=== PATIENT | male | born 1940 | race Caucasian/White ===

== ENCOUNTER 2020-01-18 20:00 | Outpatient (CLI) | payer MEDICARE, OTHER, SELFPAY | END 2020-01-18 20:01 | disposition home or self-care (01) | LOC: SLEEP 01-19 09:09 | PROVIDERS: Family Provider Family Medicine; Visit Provider Family Medicine | DX: G47.33 Obstructive sleep apnea (adult) (pediatric) (principal) | CPT/HCPCS: 95811 ==

== ENCOUNTER 2020-04-18 17:12 | Observation (INO) | payer MEDICARE, SELFPAY ==
[2020-04-18] VITALS (8 sets, daily range): BP systolic 147–176; BP diastolic 79–103; PULSE 66–88; RESP 16–18; TEMP 36.3–36.6; O2SAT 96–98; BMI 32.2
--- NOTE | 2020-04-18 17:25 | CTR_ITS ---
PROCEDURE INFORMATION: Exam: CT Head Without Contrast Exam date and time: 04/18/2020 5:37 PM Age: 79 years old Clinical indication: Altered mental status/memory loss and speech disturbance; Additional info: AMS TECHNIQUE: Imaging protocol: Computed tomography of the head without contrast. Radiation optimization: All CT scans at this facility use at least one of these dose optimization techniques: automated exposure control; mA and/or kV adjustment per patient size (includes targeted exams where dose is matched to clinical indication); or iterative reconstruction. COMPARISON: CT head wo con* [id number] 01/23/2016 9:29 AM RADIATION DOSE METRICS: Total DLP (mGy-cm): 906.09 FINDINGS: Brain: There are mild periventricular and subcortical lucencies consistent with chronic microvascular ischemic changes. Mucosal thickening of bilateral maxillary sinuses and ethmoid sinuses. Cerebral ventricles: No ventriculomegaly. Bones/joints: Unremarkable. No acute fracture. Paranasal sinuses: See Brain finding. Mastoid air cells: Visualized mastoid air cells are well aerated. Vasculature: Vascular calcifications. Soft tissues: Unremarkable. CT/CT head wo con* [id number] IMPRESSION: No acute intracranial abnormality. Chronic microvascular ischemic changes. Radiation Dose CTDIVOL = (mGy): DLP = 906.09 (mGy-cm)
--- NOTE | 2020-04-18 17:26 | XR_ITS ---
WS: [id number] Portable AP upright chest, 04/18/2020 Clinical Data: ams Comparison: Portable chest, 01/23/2016. Findings: No nodules, masses or effusions are seen. The heart is normal. The pulmonary vascularity is not increased. No pneumonia or pneumothorax is seen. The aortic arch and descending aorta show sligh t tortuosity. There is a right cardiophrenic fat pad or cyst. There is also a left cardial phrenic fa t pad or cyst. XR/XR chest 1V portable [id number] Impression: Atherosclerosis.
--- NOTE | 2020-04-18 17:27 | ECG_ITS ---
[facility] Test Date: 2020-04-18 Pat Name: Kevin Darling Department: Room: Gender: Male Delivery Architect: lynn : 1940 Requested By: Alyssa Ferreira Order Number: [id number] Iliana MD: Autumn Sharma M.D. Measurements Intervals [place] Rate: 80 P: 71 ND: 179 QRS: 48 QRSD: 116 T: 1 QT: 365 QTc: 422 Interpretive Statements SINUS RHYTHM PROBABLE INFERIOR MYOCARDIAL INFARCTION [35 ms Q WAVE IN II/aVF], PROBABLY OLD No previous ECG available for comparison Electronically Signed On 04-18-2020 20:25:03 CDT by Autumn Sharma M.D. [id number] f
--- NOTE | 2020-04-18 17:29 | PC.NURSE ---
Blood glucose accucheck is 124, doctor and nurses notified
[2020-04-18 17:34] LABS: Glucose Point of Care 124 mg/dL (70-110)
[2020-04-18 17:37] LABS: Basophils # 0.1 10^3/uL (0.0-0.1); Basophils % 0.6 %; Eosinophils # 0.2 10^3/uL (0.0-0.8); Eosinophils % 2.2 %; Hematocrit 38.6 % (42.0-52.0); Hemoglobin 12.6 g/dL (11.7-16.6); Lymphocytes # 1.7 10^3/uL (0.8-4.8); Lymphocytes % 21.2 %; Mean Corpuscular HGB Conc 32.6 g/dL (30.0-36.0); Mean Corpuscular Hemoglobin 30.1 pg (28.0-34.0); Mean Corpuscular Volume 92.1 fL (80-94); Mean Platelet Volume 10.6 fL (7.4-10.4); Monocytes # 0.6 10^3/uL (0.2-0.9); Monocytes % 7.4 %; Neutrophils # 5.47 10^3/uL (1.8-7.7); Neutrophils % 68.4 %; Nucleated Red Blood Cells % 0 %; Platelet Count 280 10^3/cmm (130-400); Red Blood Count 4.19 10^6/uL (4.1-5.3); Red Cell Distribution Width 12.4 % (12.1-15.1)
[2020-04-18] MEDS: sodium chloride 0.9% 1,000 ML 100 ML IV ×2 (17:44→22:17)
--- NOTE | 2020-04-18 17:46 | ED_ITS ---
HPI - Weakness General: Chief complaint: Weakness Stated complaint: possible stroke Time Seen by Provider: 04/18/20 17:22 Source: patient and family Mode of arrival: ambulatory Limitations: altered mental status History of Present Illness: HPI Narrative: Kevin is a nice 79-year-old male who was brought in by his family with report of difficulty walking and difficulty speaking. Yesterday the patient stated to family that he had a difficult time walking. He seemed to be ataxic and unsteady. His symptoms were present throughout the day yesterday. Today though symptoms have continued but family has noticed slurred speech. Patient has not noticed that he is weak on one side of his body more than another. He states he somewhat feels weak all over. He denies headache, visual changes, neck pain, chest pain, shortness of breath, abdominal pain, back pain, or extremity pain. He has had no fevers or chills been exposed to anybody sick according to the daughter. Because of the persistence and progression of his symptoms his family decided to bring him here to the hospital. The patient is slow to answer questions but does so appropriately at this point. Associated symptoms: Reports confusion; Denies chest pain, chills, melena, diaphoresis, dysuria, easy bruising, fever(s), headache(s), nausea, syncope or vomiting Review of Systems Const: Denies: fever(s), chills, body aches, fatigue, malaise or diaphoresis Eyes: Denies: change in vision, blurry vision, photophobia, eye discomfort, eye discharge, eye redness or yellow eyes ENMT: Denies: throat pain, odynophagia, hoarseness, swelling of lips/tongue, ear or mastoid pain, ear discharge, change in hearing or nasal discharge Card: Denies: chest pain, palpitations, irregular heart rhythm, edema, lightheadedness, syncope, pre-syncope, dyspnea on exertion or orthopnea Resp: Denies: dyspnea, productive cough, non-productive cough, wheezing, hemoptysis or chest congestion GI: Denies: abdominal pain, nausea, vomiting, hematemesis, coffee ground emesis, heartburn, diarrhea, constipation, GI cramping, hematochezia or melena : Denies: flank pain, dysuria, urinary frequency, urinary urgency or hematuria Musc: Denies: neck pain, back pain, extremity pain, extremity swelling, joint pain, joint swelling, joint redness, joint warmth or joint stiffness Skin/Breast: Denies: rash, pruritus, erythema, skin pain or skin tenderness Neuro: Reports: lack of coordination, confusion and Slurred speech present; Denies: headache(s), numbness in extremities, weakness in extremities, sensory changes, difficulty walking, dizziness, vertigo or seizure-like activity Dwight/Lymph: Denies: easy bruising, easy bleeding, petechiae, purpura or enlarged lymph nodes All/Imm: Denies: urticaria, throat swelling, tongue swelling, facial swelling or acute wheezing PFSH ED PFSH: Medical History (Updated 04/18/20 @ 19:03 by Alyssa Smart) Asthma CAD (coronary atherosclerotic disease) Hyperlipidemia Hypertension Myocardial infarction Obstructive sleep apnea Physical Exam Const: COMMON NORMALS: no acute distress, patient oriented x3, no limitations and alert GENERAL APPEARANCE: cooperative HENMT: COMMON NORMALS: normocephalic, atraumatic, external ears normal, EAC's normal and Normal external nose present HEAD & SCALP: normal to inspection, normocephalic and atraumatic FACE & SINUS: normal facial exam and face symmetric NOSE: Normal external nose present and Normal nares present EXTERNAL EAR: Yes external ears normal EXTERNAL AUDITORY CANAL: EAC's normal MOUTH: Normal oral and palatal mucosa present, lip normal and tongue normal Eye: COMMON NORMALS: Equal, round and reactive pupils present and conjunctivae normal GENERAL EYE: appearance normal, both eyes and all related structures ALIGNMENT: Yes alignment normal PERIORBITAL: periorbital findings normal EYELID: eyelids normal CONJUNCTIVA: Yes conjunctivae normal SCLERA: sclerae normal PUPIL: Yes Equal, round and reactive pupils present Neck/C-Spine: COMMON NORMALS: full ROM, no lymphadenopathy, supple, no meningeal signs and no JVD GENERAL: Yes normal visual inspection and Yes trachea midline Chest: COMMONS NORMALS: normal inspection of the chest and normal palpation of entire chest wall Resp: COMMON NORMALS: normal respiratory effort, No retractions, No use of accessory muscles and clear to auscultation bilaterally EFFORT & INSPECTION: Yes able to speak in complete sentences and Yes symmetric chest movement AUSCULTATION: clear to auscultation bilaterally, no crackles, no rales, no rhonchi and no wheezes Cardio: COMMON NORMALS: no JVD, regular rate, regular rhythm, S1 normal heart sound present and S2 normal heart sound present RATE: regular rate RHYTHM: regular rhythm HEART SOUNDS: S1 normal heart sound present, S2 normal heart sound present, no click, no gallops, no murmurs and no rubs GI: COMMON NORMALS: Soft to palpation and No hepatosplenomegaly present PALPATION: Yes Soft to palpation, No Tenderness to palpation present (GI), No Guarding due to palpation present (GI), No Rigid due to palpation, Yes No hepatosplenomegaly present, No Hernia present, No Palpable mass present and No Pulsatile mass present : COMMON NORMALS: Yes no CVA tenderness BLADDER/KIDNEY EXAM: Yes no CVA tenderness Back/Pelvis: COMMON NORMALS: no CVA tenderness, thoracic and lumbar spine normal to inspection, no thoracic nor lumbar tenderness and thoraco-lumbar ROM normal Extremity: COMMON NORMALS: normal to inspection, full ROM, capillary refill normal, no joint enlargement, no clubbing, cyanosis or edema and no calf tenderness Neuro: COMMON NORMALS: patient oriented x3, CN's II-XII intact bilaterally, moves all extremities and no sensory deficits noted SENSORIUM/ORIENTATION: Yes alert MENINGEAL SIGNS: Yes no meningeal signs Skin: COMMON NORMALS: no rashes or lesions noted, turgor normal, no jaundice, no petechiae and no mottling GENERAL SKIN EXAM: no rashes or lesions noted and turgor normal Course Vital Signs: Vital signs: Vital Signs Temperature 97.3 F L 04/18/20 17:12 Pulse Rate 68 04/18/20 19:49 Respiratory Rate 16 04/18/20 19:49 Blood Pressure 157/91 04/18/20 19:49 Pulse Oximetry 96 04/18/20 19:49 MDM - Weakness 2 MDM Narrative: Medical decision making narrative: 190 -the patient is have symptoms of confusion, ataxia, and subtle right-sided weakness for the past 2 days. Family notices slurred speech but his speech to me appears normal. I think his speech is more slow than anything. I see no sign of infectious or toxicologic precipitant. The patient did test positive for benzodiazepines but he takes temazepam at night. I guess it is possible that he may have taken temazepam in the morning for the past 2 days which could be causing his symptoms. If we hold his medications and monitor this it should clear. CT scan does not show any sign of stroke but based upon exam that is what is most suggested at this time. I have reviewed the case in full with Dr. Felix and he agrees to admit for observation and will complete the stroke up with carotid Dopplers and echo tomorrow. The patient also has a mild elevation of his cardiac enzymes but denies having any chest pain or shortness of breath. He does have some audible wheezing at this time but has a history of asthma. I will go ahead and give him a treatment here and repeat a cardiac enzyme test to rule out NSTEMI. Patient will not receive aspirin here as he has a significant allergy to this and is already on Plavix. Lab Data: Attestation: I reviewed the patient's lab results. Labs: Lab Results 04/18/20 04/18/20 04/18/20 Range/Units 17:22 17:25 17:25 WBC 8.0 (4.0-10.0) 10^3/ uL RBC 4.19 (4.1-5.3) 10^6/u L Hgb 12.6 (11.7-16.6) g/dL Hct 38.6 L (42.0-52.0) % MCV 92.1 (80-94) fL MCH 30.1 (28.0-34.0) pg MCHC 32.6 (30.0-36.0) g/dL RDW 12.4 (12.1-15.1) % Plt Count 280 (130-400) 10^3/c mm MPV 10.6 H (7.4-10.4) fL Neut % (Auto) 68.4 % Lymph % (Auto) 21.2 % [facility] % (Auto) 7.4 % Eos % (Auto) 2.2 % Baso % (Auto) 0.6 % Neut # (Auto) 5.47 (1.8-7.7) 10^3/u L Lymph # (Auto) 1.7 (0.8-4.8) 10^3/u L [facility] # (Auto) 0.6 (0.2-0.9) 10^3/u L Eos # (Auto) 0.2 (0.0-0.8) 10^3/u L Baso # (Auto) 0.1 (0.0-0.1) 10^3/u L Nucleated RBC % (a uto) 0 % Nucleated RBCs # 0.0 /100WBC PT (12.1-14.9) SECO NDS INR (0.8-1.2) APTT (23.9-36.7) SECO NDS Specimen Type Sample Site ABG pH (7.35-7.45) ABG pCO2 (35-45) mmHg ABG pO2 (80.0-100.0) mmH g ABG HCO3 (22-26) mmol/L ABG Base Excess (-2.0-2.0) mmol/ L Barrera Test Hematocrit (42-52) % O2 Delivery Device Diesel Truck Crane Operator ID Sodium 136 (136-145) mmol/L Potassium 5.1 (3.5-5.1) mmol/L Chloride 103 (98-107) mmol/L Carbon Dioxide 22 (22-29) mmol/L Anion Gap 16.1 (5-19) BUN 22 (8-23) mg/dL Creatinine 1.2 (0.7-1.2) mg/dL GFR Calculation Not Reportable Glucose 126 H (65-115) mg/dL POC Glucose 124 (70-110) mg/dL Calculated Osmolal ity 287 (285-295) mOsm/k g Lactic Acid (0.5-2.2) mmol/L Calcium 10.0 (8.5-10.5) mg/dL Magnesium 2.0 (1.7-2.3) mg/dL Total Bilirubin 0.2 (0.15-1.2) mg/dL AST 16 (0-40) U/L ALT 15 (0-41) U/L Alkaline Phosphata se 69 (40-130) IU/L Creatine Kinase 87 (39-308) U/L Troponin T Baselin e (0-15) ng/L Total Protein 7.0 (6.6-8.7) g/dL Albumin 4.3 (3.5-5.2) g/dL Globulin 2.7 (1.3-4.6) g/dL TSH 3.11 (0.27-4.20) uIU/ mL Free T4 0.92 (0.82-1.77) ng/d L Urine Color (Yellow) Urine Appearance (CLEAR) Urine pH (5-7) Ur Specific Gravit y (1.005-1.030) Urine Protein (Negative) Urine Glucose (UA) (Normal) Urine Ketones (Negative) Urine Blood (Negative) Urine Nitrate (Negative) Urine Bilirubin (Negative) Urine Urobilinogen (Negative) mg/dL Ur Leukocyte Elvie ase (Negative) Urine RBC (0-2) /hpf Urine WBC (0-5) /hpf Ur Squamous Epith Cells (0-5) /hpf Amorphous Sediment Urine Bacteria (NONE) /hpf Urine Opiates Scre en (Negative) ng/mL Ur Barbiturates Sc reen (Negative) ng/mL Ur Phencyclidine S crn (Negative) ng/mL Ur Amphetamines Sc reen (Negative) ng/mL U Benzodiazepines Scrn (Negative) ng/mL Urine Cocaine Scre en (Negative) ng/mL U Marijuana (THC) Screen (Negative) ng/mL Serum Ketones Negative (Negative) 04/18/20 04/18/20 04/18/20 Range/Units 17:25 17:25 17:25 WBC (4.0-10.0) 10^3/ uL RBC (4.1-5.3) 10^6/u L Hgb (11.7-16.6) g/dL Hct (42.0-52.0) % MCV (80-94) fL MCH (28.0-34.0) pg MCHC (30.0-36.0) g/dL RDW (12.1-15.1) % Plt Count (130-400) 10^3/c mm MPV (7.4-10.4) fL Neut % (Auto) % Lymph % (Auto) % [facility] % (Auto) % Eos % (Auto) % Baso % (Auto) % Neut # (Auto) (1.8-7.7) 10^3/u L Lymph # (Auto) (0.8-4.8) 10^3/u L [facility] # (Auto) (0.2-0.9) 10^3/u L Eos # (Auto) (0.0-0.8) 10^3/u L Baso # (Auto) (0.0-0.1) 10^3/u L Nucleated RBC % (a uto) % Nucleated RBCs # /100WBC PT 11.80 L (12.1-14.9) SECO NDS INR 0.84 (0.8-1.2) APTT 28.4 (23.9-36.7) SECO NDS Specimen Type Sample Site ABG pH (7.35-7.45) ABG pCO2 (35-45) mmHg ABG pO2 (80.0-100.0) mmH g ABG HCO3 (22-26) mmol/L ABG Base Excess (-2.0-2.0) mmol/ L Barrera Test Hematocrit (42-52) % O2 Delivery Device Diesel Truck Crane Operator ID Sodium (136-145) mmol/L Potassium (3.5-5.1) mmol/L Chloride (98-107) mmol/L Carbon Dioxide (22-29) mmol/L Anion Gap (5-19) BUN (8-23) mg/dL Creatinine (0.7-1.2) mg/dL GFR Calculation Glucose (65-115) mg/dL POC Glucose (70-110) mg/dL Calculated Osmolal ity (285-295) mOsm/k g Lactic Acid 1.2 (0.5-2.2) mmol/L Calcium (8.5-10.5) mg/dL Magnesium (1.7-2.3) mg/dL Total Bilirubin (0.15-1.2) mg/dL AST (0-40) U/L ALT (0-41) U/L Alkaline Phosphata se (40-130) IU/L Creatine Kinase (39-308) U/L Troponin T Baselin e 36 H (0-15) ng/L Total Protein (6.6-8.7) g/dL Albumin (3.5-5.2) g/dL Globulin (1.3-4.6) g/dL TSH (0.27-4.20) uIU/ mL Free T4 (0.82-1.77) ng/d L Urine Color (Yellow) Urine Appearance (CLEAR) Urine pH (5-7) Ur Specific Gravit y (1.005-1.030) Urine Protein (Negative) Urine Glucose (UA) (Normal) Urine Ketones (Negative) Urine Blood (Negative) Urine Nitrate (Negative) Urine Bilirubin (Negative) Urine Urobilinogen (Negative) mg/dL Ur Leukocyte Elvie ase (Negative) Urine RBC (0-2) /hpf Urine WBC (0-5) /hpf Ur Squamous Epith Cells (0-5) /hpf Amorphous Sediment Urine Bacteria (NONE) /hpf Urine Opiates Scre en (Negative) ng/mL Ur Barbiturates Sc reen (Negative) ng/mL Ur Phencyclidine S crn (Negative) ng/mL Ur Amphetamines Sc reen (Negative) ng/mL U Benzodiazepines Scrn (Negative) ng/mL Urine Cocaine Scre en (Negative) ng/mL U Marijuana (THC) Screen (Negative) ng/mL Serum Ketones (Negative) 04/18/20 04/18/20 04/18/20 Range/Units 18:00 18:15 18:15 WBC (4.0-10.0) 10^3/ uL RBC (4.1-5.3) 10^6/u L Hgb (11.7-16.6) g/dL Hct (42.0-52.0) % MCV (80-94) fL MCH (28.0-34.0) pg MCHC (30.0-36.0) g/dL RDW (12.1-15.1) % Plt Count (130-400) 10^3/c mm MPV (7.4-10.4) fL Neut % (Auto) % Lymph % (Auto) % [facility] % (Auto) % Eos % (Auto) % Baso % (Auto) % Neut # (Auto) (1.8-7.7) 10^3/u L Lymph # (Auto) (0.8-4.8) 10^3/u L [facility] # (Auto) (0.2-0.9) 10^3/u L Eos # (Auto) (0.0-0.8) 10^3/u L Baso # (Auto) (0.0-0.1) 10^3/u L Nucleated RBC % (a uto) % Nucleated RBCs # /100WBC PT (12.1-14.9) SECO NDS INR (0.8-1.2) APTT (23.9-36.7) SECO NDS Specimen Type Arterial Sample Site Radial, left ABG pH 7.39 (7.35-7.45) ABG pCO2 37.9 (35-45) mmHg ABG pO2 80.5 (80.0-100.0) mmH g ABG HCO3 22.9 (22-26) mmol/L ABG Base Excess -1.8 (-2.0-2.0) mmol/ L Barrera Test Pos Hematocrit 36.2 L (42-52) % O2 Delivery Device Room air Diesel Truck Crane Operator ID Cak Sodium (136-145) mmol/L Potassium (3.5-5.1) mmol/L Chloride (98-107) mmol/L Carbon Dioxide (22-29) mmol/L Anion Gap (5-19) BUN (8-23) mg/dL Creatinine (0.7-1.2) mg/dL GFR Calculation Glucose (65-115) mg/dL POC Glucose (70-110) mg/dL Calculated Osmolal ity (285-295) mOsm/k g Lactic Acid (0.5-2.2) mmol/L Calcium (8.5-10.5) mg/dL Magnesium (1.7-2.3) mg/dL Total Bilirubin (0.15-1.2) mg/dL AST (0-40) U/L ALT (0-41) U/L Alkaline Phosphata se (40-130) IU/L Creatine Kinase (39-308) U/L Troponin T Baselin e (0-15) ng/L Total Protein (6.6-8.7) g/dL Albumin (3.5-5.2) g/dL Globulin (1.3-4.6) g/dL TSH (0.27-4.20) uIU/ mL Free T4 (0.82-1.77) ng/d L Urine Color Yellow (Yellow) Urine Appearance Clear (CLEAR) Urine pH 6 (5-7) Ur Specific Gravit y 1.015 (1.005-1.030) Urine Protein Neg (Negative) Urine Glucose (UA) Norm (Normal) Urine Ketones Negative (Negative) Urine Blood Neg (Negative) Urine Nitrate Negative (Negative) Urine Bilirubin Neg (Negative) Urine Urobilinogen Neg (Negative) mg/dL Ur Leukocyte Elvie ase Negative (Negative) Urine RBC None (0-2) /hpf Urine WBC 0-4 H (0-5) /hpf Ur Squamous Epith Cells 0-4 H (0-5) /hpf Amorphous Sediment Not Reportable Urine Bacteria Trace (NONE) /hpf Urine Opiates Scre en Negative (Negative) ng/mL Ur Barbiturates Sc reen Negative (Negative) ng/mL Ur Phencyclidine S crn Negative (Negative) ng/mL Ur Amphetamines Sc reen Negative (Negative) ng/mL U Benzodiazepines Scrn Positive H (Negative) ng/mL Urine Cocaine Scre en Negative (Negative) ng/mL U Marijuana (THC) Screen Negative (Negative) ng/mL Serum Ketones (Negative) Imaging Data^: CXR: Attestation: I personally reviewed and interpreted this imaging study as follows: My impression: No acute cardiopulmonary findings. CT Head: Radiologist's impression: [address] [place] [address] CT Scan Report Signed Patient: Kevin Darling Unit #: [id number] : 1940 Age/Sex: 79 / M ADM Date: 04/18/20 Loc: ER Room/Bed: Attending Dr: Ordering Provider/Ordering MD: Alyssa Smart DO Date of Service: 04/18/20 Procedure(s): CT head wo con* [id number] Accession Number(s): [id number] Report Number: [id number] PROCEDURE INFORMATION: Exam: CT Head Without Contrast Exam date and time: 04/18/2020 5:37 PM Age: 79 years old Clinical indication: Altered mental status/memory loss and speech disturbance; Additional info: AMS TECHNIQUE: Imaging protocol: Computed tomography of the head without contrast. Radiation optimization: All CT scans at this facility use at least one of these dose optimization techniques: automated exposure control; mA and/or kV adjustment per patient size (includes targeted exams where dose is matched to clinical indication); or iterative reconstruction. COMPARISON: CT head wo con* [id number] 01/23/2016 9:29 AM RADIATION DOSE METRICS: Total DLP (mGy-cm): 906.09 FINDINGS: Brain: There are mild periventricular and subcortical lucencies consistent with chronic microvascular ischemic changes. Mucosal thickening of bilateral maxillary sinuses and ethmoid sinuses. Cerebral ventricles: No ventriculomegaly. Bones/joints: Unremarkable. No acute fracture. Paranasal sinuses: See Brain finding. Mastoid air cells: Visualized mastoid air cells are well aerated. Vasculature: Vascular calcifications. Soft tissues: Unremarkable. CT/CT head wo con* [id number] IMPRESSION: No acute intracranial abnormality. Chronic microvascular ischemic changes. Radiation Dose CTDIVOL = (mGy): DLP = 906.09 (mGy-cm) Dictated By: Emiliano Bardales MD Signed By: Emiliano Bardales MD Signed Date/Time: 04/18/201805 DD/ 03 EKG Data^: EKG 1: Attestation: I personally reviewed and interpreted this EKG as follows: EKG interpretation date: 04/18/20 EKG interpretation time: 17:25 Interpretation: Normal sinus rhythm at 80 beats a minute, normal axis, no blocks, normal intervals, Q waves inferiorly, no acute ST or T wave changes. EKG 2: Attestation: I personally reviewed and interpreted this EKG as follows: EKG interpretation date: 04/18/20 EKG interpretation time: 20:00 Interpretation: Normal sinus rhythm at 64 beats a minute, normal axis, no blocks, normal intervals, wandering baseline artifact, no acute ST-T wave changes. Discharge Plan Discharge Patient Disposition: Placed in Observation Admit Provider: Jonny Felix Clinical Impression: Acute alteration in mental status CVA (cerebral vascular accident) Qualifiers: CVA mechanism: unspecified Qualified Code(s): I63.9 - Cerebral infarction, unspecified Condition: Stable Referrals: Jonny Felix MD [Primary Care Provider] - Discharge Date/Time: 04/18/20 19:49 Coding Level of Care Code ED Purler for Chg Fwd Exam Comprehensive NIH stroke score NIHSS Level Of Consciousness - 1a: 0 Level Of Consciousness Questions - 1b: Both Correct Level Of Consciousness Commands - 1c: Both Correct Best Gaze - 2: Normal Visual Poe - 3: No Visual Loss Facial Palsy - 4: Minor Paralysis Motor Arm Right - 5: Drift Motor Arm Left - 5: No Drift Motor Leg Right - 6: Drift Motor Leg Left - 6: No Drift Limb Ataxia - 7: Present In Two Limbs Sensory - 8: Normal Best Language - 9: No Aphasia Dysarthia - 10: Normal Extinction And Inattention - 11: 0 Score Total Score: 5
[2020-04-18 17:50] LABS: INR 0.84 (0.8-1.2)
[2020-04-18 17:51] LABS: Partial Thromboplastin Time 28.4 SECONDS (23.9-36.7)
[2020-04-18 17:54] LABS: Lactic Sepsis W/Reflex 1.2 mmol/L (0.5-2.2)
[2020-04-18 17:56] LABS: Troponin(5th) Baseline 36 ng/L (0-15)
[2020-04-18 17:57] LABS: Ketone (Acetest) Serum Negative (Negative)
[2020-04-18 18:06] LABS: Alanine Aminotransferase 15 U/L (0-41); Albumin Level 4.3 g/dL (3.5-5.2); Alkaline Phosphatase 69 IU/L (40-130); Anion Gap 16.1 (5-19); Aspartate Amino Transferase 16 U/L (0-40); Blood Urea Nitrogen 22 mg/dL (8-23); Carbon Dioxide 22 mmol/L (22-29); Chloride 103 mmol/L (98-107); Creatine Phosphokinase 87 U/L (39-308); Free T4 Free Thyroxine 0.92 ng/dL (0.82-1.77); Globulin 2.7 g/dL (1.3-4.6); Glucose 126 mg/dL (65-115); Osmolality Calculated 287 mOsm/kg (285-295); Potassium 5.1 mmol/L (3.5-5.1); Sodium 136 mmol/L (136-145); Thyroid Stimulating Hormone 3.11 uIU/mL (0.27-4.20); Total Bilirubin 0.2 mg/dL (0.15-1.2)
[2020-04-18 18:11] LABS: ABG PCO2 37.9 mmHg (35-45); ABG PH Result 7.39 (7.35-7.45); Arterial Blood Gas Hematocrit 36.2 % (42-52); Base Excess ABG -1.8 mmol/L (-2.0-2.0); Blood Gas Allen Test Pos; Blood Gas Operator Identificat CAK; Blood Gas Sample Site Radial, left; Blood Gas Sample Type Arterial; HCO3 ABG 22.9 mmol/L (22-26); Oxygen Device ROOM AIR; PO2 ABG 80.5 mmHg (80.0-100.0)
[2020-04-18 18:33] LABS: Bilirubin Urine Neg (Negative); Blood Urine Neg (Negative); Glucose Urine UA Norm (Normal); Ketones Urine Negative (Negative); Leukocyte Esterase Urine Negative (Negative); Nitrate Urine Negative (Negative); Protein Urine Neg (Negative); Specific Gravity, Urine 1.015 (1.005-1.030); Urine Appearance Clear (CLEAR); Urine Color Yellow (Yellow); Urobilinogen Urine Neg (Negative); pH Urine 6 (5-7)
[2020-04-18 18:41] LABS: Amphetamines Screen Urine Negative (Negative); Barbiturates Screen Urine Negative (Negative); Benzodiazepines Screen Urine Positive (Negative); Cocaine Screen Urine Negative (Negative); Opiate Screen Urine Negative (Negative); PCP Screen Urine Negative (Negative); THC Screen Urine Negative (Negative)
[2020-04-18 18:42] LABS: Add Urine Culture? No; Bacteria Urine TRACE /hpf; Squamous Epithelial Cell Urine 0-4 /hpf (0-5); WBC Urine 0-4 /hpf (0-5)
--- NOTE | 2020-04-18 19:27 | ECG_ITS ---
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 Measurements Intervals [place] Rate: 64 P: 10 [place]: 177 QRS: 55 QRSD: 115 T: 16 QT: 398 QTc: 412 Interpretive Statements SINUS RHYTHM MODERATE INTRAVENTRICULAR CONDUCTION DELAY [110+ ms QRS DURATION] NONSPECIFIC T-WAVE ABNORMALITY Compared to ECG 04/18/2020 17:25:32 Intraventricular conduction delay now present T-wave abnormality now present Myocardial infarct finding no longer present Electronically Signed On 04-19-2020 16:40:59 CDT by Aguilar Dugan M.D. [id number]
[2020-04-18 20:01] LABS: Troponin 5 2HR 33.86 ng/L (0-15)
[2020-04-18 20:05] LABS: Troponin 5 2HR Delta -2.14 ABS# (0-10)
[2020-04-18] MEDS: lisinopril 20 mg Tablet PO (22:16)
[2020-04-18] MEDS: ibuprofen 200 mg Tablet 400 MG PO (22:16)
[2020-04-18] MEDS: temazepam 15 mg Capsule PO (22:16)
[2020-04-18] MEDS: metoprolol tartrate 25 mg Tablet PO (22:17)
--- NOTE | 2020-04-18 23:27 | ECG_ITS ---
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 Measurements Intervals [place] Rate: 62 P: 11 [place]: 171 QRS: 56 QRSD: 117 T: -6 QT: 407 QTc: 416 Interpretive Statements SINUS RHYTHM WITH OCCASIONAL VENTRICULAR PREMATURE COMPLEXES Compared to ECG 04/18/2020 20:00:59 Ventricular premature complex(es) now present MyocardialIntraventricular conduction delay no longer present T-wave abnormality no longer present Electronically Signed On 04-19-2020 16:40:37 CDT by Aguilar Dugan M.D. [id number]
[2020-04-19] VITALS (7 sets, daily range): BP systolic 134–158; BP diastolic 75–84; PULSE 59–76; RESP 16–18; TEMP 36.5–36.8; O2SAT 94–96
[2020-04-19 00:32] LABS: Troponin 5 6HR 44.29 ng/L (0-15); Troponin 5 6HR Delta 8.29 ng/L (0-12)
[2020-04-19 06:05] LABS: Basophils # 0.1 10^3/uL (0.0-0.1); Basophils % 0.9 %; Eosinophils # 0.2 10^3/uL (0.0-0.8); Eosinophils % 3.2 %; Hematocrit 36.8 % (42.0-52.0); Hemoglobin 11.5 g/dL (11.7-16.6); Lymphocytes # 2.1 10^3/uL (0.8-4.8); Lymphocytes % 29.5 %; Mean Corpuscular HGB Conc 31.3 g/dL (30.0-36.0); Mean Corpuscular Hemoglobin 29.3 pg (28.0-34.0); Mean Corpuscular Volume 93.9 fL (80-94); Mean Platelet Volume 10.9 fL (7.4-10.4); Monocytes # 0.5 10^3/uL (0.2-0.9); Monocytes % 7.5 %; Neutrophils # 4.09 10^3/uL (1.8-7.7); Neutrophils % 58.6 %; Nucleated Red Blood Cells % 0 %; Platelet Count 252 10^3/cmm (130-400); Red Blood Count 3.92 10^6/uL (4.1-5.3); Red Cell Distribution Width 12.2 % (12.1-15.1)
[2020-04-19 06:34] LABS: Anion Gap 13.4 (5-19); Blood Urea Nitrogen 21 mg/dL (8-23); Calcium 9.3 mg/dL (8.5-10.5); Carbon Dioxide 24 mmol/L (22-29); Chloride 103 mmol/L (98-107); Glucose 125 mg/dL (65-115); Osmolality Calculated 286 mOsm/kg (285-295); Potassium 4.4 mmol/L (3.5-5.1); Sodium 136 mmol/L (136-145)
[2020-04-19] MEDS: sodium chloride 0.9% 1,000 ML 100 ML IV (06:51)
[2020-04-19] MEDS: lisinopril 20 mg Tablet PO (08:17)
[2020-04-19] MEDS: metoprolol tartrate 25 mg Tablet PO (08:17)
[2020-04-19] MEDS: escitalopram 10 mg Tablet PO (08:17)
[2020-04-19] MEDS: clopidogrel 75 mg Tablet PO (08:17)
[2020-04-19] MEDS: atorvastatin 40 mg Tablet PO (08:17)
[2020-04-19] MEDS: metformin 500 mg Tablet 1000 MG PO (08:17)
[2020-04-19] MEDS: albuterol 8 gm MDI 2 PUFF INHALATION (08:21)
[2020-04-19] MEDS: ibuprofen 600 mg Tablet PO (10:15)
--- NOTE | 2020-04-19 13:40 | P.SS_ITS ---
Short Stay Summary Providers Date of Admit/Discharge: 04/19/20 Attending Provider: Jonny Felix MD Primary Care Provider: Jonny Felix MD Chief Complaint: possible stroke HPI History of Present Illness Kevin Darling is a 79 year old male who presented to the hospital yesterday after his noticed that he was having some difficulty with his speech. He also noted that he may have had a little bit of right-sided weakness but this was pretty subjective. He was slurring his words a little bit. Overall he was feeling pretty good though. No history of stroke in the past. He had no recent chest pain shortness of breath or cough. No changes in his medications. Patient was monitored overnight. Symptoms seem to improve by this morning. His speech seems to be improved. Strength was normal on both sides. Home Meds/Allergies Home Medications and Allergies Home Medications Medication Instructions Recorded Confirmed Type albuterol sulfate 2 puff INHALATION 6XD PRN 04/18/20 04/18/20 History atorvastatin 40 mg PO DAILY 04/18/20 04/18/20 History clopidogrel 75 mg PO DAILY 04/18/20 04/18/20 History escitalopram oxalate 10 mg PO DAILY 04/18/20 04/18/20 History fluticasone propion-salmeterol See Rx Instructions .ROUTE .COMPLEX 04/18/20 04/18/20 History [Advair Diskus] lisinopril 20 mg PO BID 04/18/20 04/18/20 History metformin 1,000 mg PO BID 04/18/20 04/18/20 History metoprolol tartrate 25 mg PO BID 04/18/20 04/18/20 History temazepam 15 mg PO BEDTIME 04/18/20 04/18/20 History Allergies Allergy/AdvReac Type Severity Reaction Status Date / Time aspirin Allergy Unknown Verified 04/18/20 17:57 PFSH Acute PFSH: Medical History Asthma CAD (coronary atherosclerotic disease) Hyperlipidemia Hypertension Myocardial infarction Obstructive sleep apnea Vitals/I&O/Wt Last Vital Signs Temp 98.1 F 04/19/20 11:36 Pulse 63 04/19/20 11:36 Resp 18 04/19/20 11:36 BP 138/76 04/19/20 11:36 Pulse Ox 96 04/19/20 11:36 04/18/20 04/19/20 04/19/20 22:59 06:59 14:59 Intake Total 1056.667 / 1056.667 960 / 960 Output Total 275 / 275 775 / 775 Balance 781.667 / 781.667 185 / 185 Weight last 48 hrs Weight 212 lb Physical Exam Narrative: EXAM NARRATIVE: General: No acute distress, Alert. Well nourished. HEENT: PERRLA, EOMI. vision grossly normal. Throat clear. Neck: supple, no adenopathy. Heart: Regular rate and rhythm. No murmurs, rubs or gallops. Normal capillary refill. Lungs: Clear to auscultation. No wheezes, rhonchi or rales. Abdomen: Positive bowel sounds. Non-tender, non-distended. No hepatosplenomegaly. No gaurding. Extremities: No clubbing, cyanosis, or edema. Negative Hilda's. -Neurology -cranial nerves II through XII grossly intact. Strength equal and symmetric on both sides in his upper and lower extremities. Sensation normal. SSS Data Data Completed and Pending: Completed Studies During Hospitalization Category Date Time Status CT head wo con* [id number] Stat Cat Scan 04/18/20 17:25 Completed XR chest 1V elizabeth ble [id number] Stat Exams 04/18/20 17:26 Completed Pending at discharge Category Date Time Status Blood Culture Sta t Lab 04/18/20 18:00 Results CV carotid duplex BI* [id number] Urgent Ultrasound 04/19/20 19:00 Taken CV echo complete* [id number] Urgent Ultrasound 04/19/20 21:11 Taken Diagnoses at Discharge Discharge Diagnosis (1) Acute alteration in mental status: Status: Acute Problem details: -Unclear if this is related to TIA or his medications. Symptoms seem to have cleared. His carotid and echo is were pending at the time of discharge. Preliminary report on both was normal though. Patient will continue with his Plavix. We will follow-up with him in the clinic closely next week and probably get an MRI to further evaluate this. He is instructed to monitor to see if the temazepam or Lexapro may be causing some of the symptoms for him as well. Discharge Plan Discharge Patient Disposition: Home Condition: Stable Prescriptions: Continued atorvastatin 40 mg tablet 40 mg PO DAILY RF: 0 Advair Diskus 250-50 mcg/dose blister with device See Rx Instructions .ROUTE .COMPLEX RF: 0 lisinopril 20 mg tablet 20 mg PO BID RF: 0 clopidogrel 75 mg tablet 75 mg PO DAILY RF: 0 temazepam 15 mg capsule 15 mg PO BEDTIME RF: 0 metformin 1,000 mg tablet 1,000 mg PO BID RF: 0 albuterol sulfate 90 mcg/actuation Hfa Aerosol Inhaler 2 puff INHALATION 6XD PRN (Reason: Shortness Of Breath) RF: 0 escitalopram oxalate 10 mg tablet 10 mg PO DAILY RF: 0 metoprolol tartrate 25 mg tablet 25 mg PO BID RF: 0 Discharge Orders: Discharge Order (Routine); Ordered 04/19/20 Ordered By: Jonny Felix Referrals: [facility] [place]Outside] Jonny Felix MD [Primary Care Provider] - 1-3 days Discharge Diet: As Directed Discharge Activity: Resume usual activity Activity Restrictions/Additional Instructions: -Overall your symptoms seem to be improving. You may see some waxing and waning of your symptoms over the next few days. If there is significant worsening stroke like symptoms you need to come back to the emergency room right away. -Continue all of your home medications the same -Follow-up with Dr. Felix the first part of next week and we will determine if we want to proceed with an MRI of the head at that time. -Keep your appointment with remedial reading teacher as well. -It is possible that your symptoms may be related to medications as well. Monitor to see if primarily the temazepam or Lexapro is causing the symptoms for you. 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
--- NOTE | 2020-04-19 14:15 | PC.NURSE ---
Discharge instructions given to patient. Discharge instructions reviewed with patient and , both voiced understanding. IV is removed and patient is dressed in his personal clothing. Will continue to monitor. RUTH RICHARD
--- NOTE | 2020-04-19 19:00 | USCV_ITS ---
Kevin Darling Age: 79 Gender: M : 1940 Exam Date: 04/19/2020 07:34 Ordering Phys: Alyssa Smart DO Technologist: Ryan Everett Exam Location: [facility] [place] Indication: CVA Risk Factors: None Previous Vascular Surgery: None Right Brachial BP: / Left Brachial BP: / Right Left Velocity (cm/s) Spectral Plaque Velocity (cm/s) Spectral Plaque Syst/Diast Broadening Syst/Diast Broadening 55.70/ 12.00 Prox CCA 67.50 / 16.40 55.70/ 10.30 Mid CCA 60.30 / 14.30 63.50/ 12.90 Hetro Distal CCA 73.60 / 15.30 42.30/ 8.50 Hetro Prox ICA 77.80 / 27.30 Hetro 44.70/ 11.50 Hetro Mid ICA 80.40 / 27.30 Hetro 55.00/ 21.10 Distal ICA 81.10 / 31.20 115.80 ECA 78.70 0.87 ICA/CCA 1.10 Antegrade Vertebral Antegrade 39.90/ 9.10 cm/s 43.20/ 12.60 cm/s Tri Subclavian Tri 120.3 92.40 0 FINDINGS Minimal scattered plaques at the bifurcations bilaterally Intimal thickening in the common carotid arteries bilaterally Antegrade flow in the vertebral arteries bilaterally Normal Doppler flow velocities in the external carotid arteries bilaterally CONCLUSIONS Minimal scattered plaques at the bifurcations bilaterally with no significant stenosis, based on the above finding. No unstable lesions noted Dr Viviane Jensen MD [facility] (Electronically Signed) Final Date: 19 April 2020 13:56 S
--- NOTE | 2020-04-19 21:11 | USCV_ITS ---
Phong Kevin Age: 79 Gender: M : 1940 Exam Date: 04/19/2020 07:18 Ordering Phys: Alyssa Smart DO Technologist: Ryan Everett [place] [facility] [place]ication: CVA BP: 134 / 75 HR: 66 Rhythm: Sinus Technical Quality: Adequate MEASUREMENTS (Male / Female) Normal Values 2D ECHO LV Ejection Fraction MOD 2C 68.1 % LV Ejection Fraction 2C AL 68.5 % LA Diameter 4.5 cm LA Width 5.0 cm LA Height 5.5 cm RA Width 4.9 cm RA Height 4.9 cm M-MODE LV Diastolic Diameter MM 6.6 cm 4.2 - 5.9 / 3.9 - 5.3 cm LV Systolic Diameter MM 4.7 cm LV Ejection Fraction MM Teich 54.3 % IVS Diastolic Thickness MM 1.3 cm 0.6 - 1.0 / 0.6 - 0.9 cm IVS Systolic Thickness MM 1.6 cm LVPW Diastolic Thickness MM 1.2 cm 0.6 - 1.0 / 0.6 - 0.9 cm LVPW Systolic Thickness MM 1.7 cm RV Diastolic Diameter MM 2.3 cm Aortic Annulus Diameter 3.6 cm LA Ao Ratio MM 1.3 MV E Point Septal Separation 1.4 cm DOPPLER AV Peak Velocity 209.0 cm/s LVOT Peak Velocity 83.0 cm/s MV Area PHT 5.0 cm squared Mitral E to A Ratio 0.9 MV E' Velocity 10.0 cm/s Mitral E to MV E' Ratio 8.5 Mitral E to LV E' Lateral Ratio 7.5 Mitral E to LV E' Septal Ratio 10.0 TR Peak Velocity 205.0 cm/s TR Peak Gradient 16.9 mmHg TV Peak E Velocity 74.0 cm/s Right Atrial Pressure 3.0 mmHg Pulmonary Artery Systolic Pressu 19.8 mmHg PV Peak Velocity 131.0 cm/s FINDINGS Left Ventricle Moderate diffuse hypokinesia of the inferolateral wall segments. Mild hypokinesia of the septal segments. Overall ejection fraction around 45%. Mildly dilated LV cavity Right Ventricle The right ventricle is normal in size and function. Right Atrium The right atrium is normal in size. Left Atrium Upper limit of normal size Mitral Valve Thickened mitral valve. Aortic Valve Thickened aortic valve. Peak velocity at the aortic valve was 2.10 m/s Tricuspid Valve No gross abnormalities noted no gross abnormalities noted Pulmonic Valve Structurally normal pulmonic valve without significant stenosis. There is no pulmonic regurgitation. Pericardium Normal pericardium without effusion. Aorta Normal ascending aorta dimension. CONCLUSIONS Moderate diffuse hypokinesia of the inferolateral wall segments. Mild hypokinesia of the septal segments. Thickened mitral valve. Overall ejection fraction around 45%. Mildly dilated LV cavity. Features of aortic valve sclerosis. There is no pericardial effusion. There are no intracardiac masses. No previous study is available for comparison. Dr Viviane Jensen MD [facility] (Electronically Signed) Final Date: 19 April 2020 13:48 S
== END 2020-04-19 15:00 | disposition home or self-care (01) ==
LOC: ER 19:25 → MEDSURG 19:41
PROVIDERS: Emergency Medicine; Admitting Provider Family Medicine; PCP Family Medicine; Visit Provider Family Medicine
DX: R41.82 Altered mental status, unspecified (principal); J45.909 Unspecified asthma, uncomplicated; I25.10 Atherosclerotic heart disease of native coronary artery without angina pectoris; I10 Essential (primary) hypertension; I25.2 Old myocardial infarction; G47.33 Obstructive sleep apnea (adult) (pediatric)
CPT/HCPCS: 12345; 36415; 36416; 36600; 70450; 71045; 80048; 80053; 80306; 81001; 82009; 82550; 82803; 82962; 83605; 83735; 84439; 84443; 84484; 85025; 85610; 85730; 87040; 93005; 93306; 93880; 94640; 96360; 96361; 99284; 99285; G0378; J3535; J7030

== ENCOUNTER 2020-04-26 15:35 | Outpatient (CLI) | payer MEDICARE, SELFPAY ==
--- NOTE | 2020-04-26 15:46 | MR_ITS ---
WS: [id number] MRI HEAD WITHOUT CONTRAST TECHNIQUE: Sagittal T1, T2 axial, T2 axial FLAIR, axial and coronal T1 images, axial susceptibility w eighted imaging, axial diffusion weighted images, and coronal T2 images were obtained. CLINICAL INFORMATION: STROKE COMPARISON: CT April 18, 2020 FINDINGS: Small patchy foci of restricted diffusion involving the left aspect of shine consistent with acute isc hemia. Tiny amount of edema in the left aspect of the shine. No evidence of mass effect. No hemorrhage . No other foci of acute ischemia. Moderate small vessel changes with Moderate parenchymal volume loss. Chronic lacunar infarcts in the right greater than left cerebellum. Normal vascular flow voids at the skull base. No extra-axial flui d collections. No evidence of mass or mass effect. Mild mucosal thickening in the paranasal sinuses. Fluid in the sphenoid sinuses. Mastoid air cells are well aerated. Normal optic chiasm and pituitary infundibulum. Moderate symmetric atrophy involving the temporal lob es and hippocampal formations. Prior postoperative changes maxillary antrostomies. No hemosiderin on susceptibly weighted images. MR/MR head wo con* [id number] IMPRESSION: 1. Small amount of patchy restricted diffusion left aspect of the shine consist ent with acute ischemia. Mild edema. No mass effect. 2. Moderate small vessel changes with moderate parenchymal volume loss. 3. 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 4. Mild mucosal thickening in the paranasal sinuses with fluid in the sphenoid sinus consistent with sinusitis. 5. Evidence of prior sinus surgery with maxillary antrostomies.
== END 2020-04-26 15:36 | disposition home or self-care (01) ==
LOC: RADWPI 15:38
PROVIDERS: PCP Family Medicine; Visit Provider Family Medicine
DX: I63.9 Cerebral infarction, unspecified (principal)
CPT/HCPCS: 70551

== ENCOUNTER 2021-02-04 14:40 | Outpatient (CLI) | payer MEDICARE, OTHER, SELFPAY ==
--- NOTE | 2021-02-04 14:51 | XRR_ITS ---
PROCEDURE INFORMATION: Exam: XR Chest Exam date and time: 02/04/2021 2:51 PM Age: 80 years old Clinical indication: Hernia. Shortness of breath. Cough. Essential hypertension/coronary artery disease. TECHNIQUE: Imaging protocol: XR of the chest. Views: 2 views. COMPARISON: CR XR chest 1V portable [id number] 04/18/2020 5:35 PM FINDINGS: Lungs: The lungs are hyperinflated. Smooth bulging of the right hilum may reflect an ascending thoracic aortic aneurysm. There is probable bibasilar scarring or and/or atelectasis. Pleural spaces: No pleural effusion.; No pneumothorax. Heart/Mediastinum: The cardiac silhouette is unchanged. No gross evidence of pneumomediastinum. Bones/joints: Old left rib fractures are noted. No definite acute fracture is seen. XR/XR chest 2V* [id number] IMPRESSION: 1. Smooth bulging of the right hilum may reflect an ascending thoracic aortic aneurysm. Consider CTA of the chest to further assess if clinically warranted. 2. The lungs are hyperinflated; query COPD, asthma or other obstructive lung disease.
== END 2021-02-04 14:41 | disposition home or self-care (01) ==
LOC: LAB 14:47
PROVIDERS: PCP Family Medicine; Visit Provider Family Medicine
DX: R05 Cough (principal); E11.9 Type 2 diabetes mellitus without complications; I10 Essential (primary) hypertension; I25.10 Atherosclerotic heart disease of native coronary artery without angina pectoris
CPT/HCPCS: 71046

== ENCOUNTER 2021-03-20 10:45 | Outpatient (CLI) | payer MEDICARE, OTHER, SELFPAY ==
--- NOTE | 2021-03-20 10:49 | CT_ITS ---
WS: [id number] Exam: CT chest w con* [id number] Date/Time of Exam: 03/20/2021 10:52 AM Reason For Exam: ABNORMAL CHEST RADIOGRAPH, COUGH DLP: 961.[address] scans at [facility] use at least one of these dose optimization techniques: automat ed exposure control; mA and/or kV adjustment per patient size (includes targeted exams where dose is matched to clinical indication); or iterative reconstruction. The lungs are clear and fully expanded. No suspicious pulmonary mass or nodule identified. No evidenc e of thoracic aortic aneurysm. The central pulmonary arteries are clear. Triple vessel coronary arter y calcifications are seen. No pleural or pericardial effusion. Several old left rib fractures are not ed. Areas of mild bilateral pleural thickening. The airway is patent. No significant lymphadenopathy in the chest. Normal thyroid tissue. Prominent right brachiocephalic trunk appears to account for the questionable finding on recent chest radiograph. No destructive bone lesions. Low-grade nondisplaced compression fractures of the lower T-spine are noted. There are two vertebra involved. CT/CT chest w con* [id number] IMPRESSION: 1. No evidence of the thoracic aortic aneurysm. 2. No sign of suspicious pulmonary mass or lymphadenopathy in the chest. 3. Pulmonary hyperinflation and mild chronic pleural changes. Additional noneme rgent findings as above.
[2021-03-20 11:09] LABS: Blood Urea Nitrogen 21 mg/dL (8-23)
[2021-03-20] MEDS: iohexol 300 mg/mL 100 mL Btl IV (11:14)
== END 2021-03-20 10:46 | disposition home or self-care (01) ==
PROVIDERS: PCP Family Medicine; Visit Provider Family Medicine
DX: R93.89 Abnormal findings on diagnostic imaging of other specified body structures (principal); R05 Cough
CPT/HCPCS: 71260; 82565; 84520; Q9967

== ENCOUNTER 2021-12-31 10:56 | Emergency (ER) | payer MEDICARE, OTHER, SELFPAY ==
--- NOTE | 2021-12-31 11:02 | CTR_ITS ---
PROCEDURE INFORMATION: Exam: CT Head Without Contrast Exam date and time: 12/31/2021 11:10 AM Age: 81 years old Clinical indication: Injury or trauma; Blunt trauma (contusions or hematomas); Injury details: Ground level fall on gravel road. Hit back of head n gravel. Lac to RT side of head. ; Additional info: Trauma/fall TECHNIQUE: Imaging protocol: Computed tomography of the head without contrast. Radiation optimization: All CT scans at this facility use at least one of these dose optimization techniques: automated exposure control; mA and/or kV adjustment per patient size (includes targeted exams where dose is matched to clinical indication); or iterative reconstruction. COMPARISON: MR head wo con* [id number] 04/26/2020 3:44 PM RADIATION DOSE METRICS: Total DLP (mGy-cm): 734.9 FINDINGS: Brain: Moderate central and cortical atrophy. There is hemorrhage noted measuring 14 x 14 mm involving the medial right parietal lobe just anterior and slightly above the fissure. There is no subdural hemorrhage. Cerebral ventricles: No ventriculomegaly. Paranasal sinuses: Mucous membrane thickening in the maxillary sinuses. Possible maxillary bilateral antrectomies. Extensive ethmoidal air cell disease and mild right frontal sinus disease. Subtotal opacification of the left sphenoid sinus and mild disease in the right sphenoid sinus. Mastoid air cells: Visualized mastoid air cells are well aerated. Bones/joints: See Paranasal sinuses finding. Soft tissues: There is scalp and skin injury involving the right posterior parietal lobe with hematoma along the posterior right scalp. CT/CT head wo con* [id number] IMPRESSION: 1. Intraparenchymal hemorrhage right parietal lobe. 2. Extensive right-sided scalp injury.
--- NOTE | 2021-12-31 11:02 | CTR_ITS ---
PROCEDURE INFORMATION: Exam: CT Cervical Spine Without Contrast Exam date and time: 12/31/2021 11:13 AM Age: 81 years old Clinical indication: Injury or trauma; Blunt trauma; Injury details: Ground level fall hitting back of head on gravel. C-collar in place; Additional info: Trauma, fall TECHNIQUE: Imaging protocol: Computed tomography images of the cervical spine without contrast. Radiation optimization: All CT scans at this facility use at least one of these dose optimization techniques: automated exposure control; mA and/or kV adjustment per patient size (includes targeted exams where dose is matched to clinical indication); or iterative reconstruction. COMPARISON: CT Cervical Spine wo* [id number] 01/23/2016 9:32 AM RADIATION DOSE METRICS: Total DLP (mGy-cm): 725.34 FINDINGS: Bones/joints: No acute fracture. There is 3 mm listhesis C3 anterior to C4. There is 2 mm listhesis see 5 anterior to C6. Discs/Spinal canal/Neural foramina: C2/3: No acute abnormality. C3/4: No disc protrusion or extrusion. No spinal stenosis. The right foramina is normal with severe left foraminal narrowing due to spurring. C4/5: No disc protrusion or extrusion. Moderate foraminal narrowing due to arthritic changes. No spinal stenosis. C5/6: Mild degenerative disc disease. No disc protrusion or extrusion. Moderate foraminal narrowing due to spurring on the right and moderate to severe foraminal narrowing due to spurring on the left. No stenosis. C6/7 and C7/T1: No acute abnormality. Lungs: Mild suspected left apical pleuroparenchymal scarring. Soft tissues: Unremarkable. CT/CT cervical spin wo con* [id number] IMPRESSION: Arthritis and listhesis. No acute fracture.
--- NOTE | 2021-12-31 11:03 | W.ED.FALL ---
Documented by User: DYLAN Amaral 12/31/21 15:04 HPI - Fall General: Chief Complaint: Fall Stated Complaint: HEAD LAC, FALL Time Seen by Provider: 12/31/21 11:02 Source: patient and EMS Mode of arrival: EMS Limitations: no limitations History of Present Illness: Patient is a 81-year-old male who presents to ED today via EMS for ground-level fall. Patient states his truck is broken down and he was walking on the side of the road when one of his legs gave out (he states this is a chronic issue) causing him to fall and strike the posterior aspect of his scalp on the ground. No LOC. Patient arrives via EMS alert and oriented but does have a significant amount of bleeding present. He does take Plavix. Patient was briefly evaluated by myself and CT was called for stat CT imaging due to the concern for a intracranial bleed. [facility] ED PFSH: Medical History Asthma CAD (coronary atherosclerotic disease) Hyperlipidemia Hypertension Myocardial infarction Obstructive sleep apnea Family History Sister Cancer Pancreatic CA Father , Age 70 MD Myocardial infarction Social History Smoking and tobacco status: never smoked Course ED course: I got a call from Natasha from CT stating patient did have an intracranial bleed. I immediately let Dr. Ag know and he will assume care for this patient. Vital Signs: Vital signs: Vital Signs Temperature 97.9 F 12/31/21 12:05 Pulse Rate 96 12/31/21 12:10 Respiratory Rate 16 12/31/21 12:10 Blood Pressure 121/82 12/31/21 12:10 Pulse Oximetry 96 12/31/21 12:10 MDM - Fall Medical Decision Making Care transferred to Dr. Ag. Lab Data : 12/31/21 11:52 12/31/21 11:52 Radiology Impressions Cervical Spine CT 12/31/21 11:02 IMPRESSION: Arthritis and listhesis. No acute fracture. Head CT 12/31/21 11:02 IMPRESSION: 1. Intraparenchymal hemorrhage right parietal lobe. 2. Extensive right-sided scalp injury. ADDENDUM: 12/31/21 1129 THIS REPORT CONTAINS FINDINGS THAT MAY BE CRITICAL TO PATIENT CARE. The findings were verbally communicated by me to Dr Ag at 11:27 AM DECORATOR MANNEQUIN on 12/31/2021. The findings were acknowledged and understood. Laboratory Results WBC 17.2 10^3/uL (4.0-10.0) H 12/31/21 11:52 RBC 3.78 10^6/uL (4.1-5.3) L 12/31/21 11:52 Hgb 11.5 g/dL (11.7-16.6) L 12/31/21 11:52 Hct 35.5 % (42.0-52.0) L 12/31/21 11:52 MCV 93.9 fl (80-94) 12/31/21 11:52 MCH 30.4 pg (28.0-34.0) 12/31/21 11:52 MCHC 32.4 g/dL (30.0-36.0) 12/31/21 11:52 RDW 12.2 % (12.1-15.1) 12/31/21 11:52 Plt Count 223 10^3/cmm (130-400) 12/31/21 11:52 MPV 11.8 fL (7.4-10.4) H 12/31/21 11:52 Neut % (Auto) 91.2 % 12/31/21 11:52 Lymph % (Auto) 4.2 % 12/31/21 11:52 [place] % (Auto) 3.3 % 12/31/21 11:52 Eos % (Auto) 0.1 % 12/31/21 11:52 Baso % (Auto) 0.4 % 12/31/21 11:52 Neut # (Auto) 15.72 10^3/uL (1.8-7.7) H 12/31/21 11:52 Lymph # (Auto) 0.7 10^3/uL (0.8-4.8) L 12/31/21 11:52 [place] # (Auto) 0.6 10^3/uL (0.2-0.9) 12/31/21 11:52 Eos # (Auto) 0.0 10^3/uL (0.0-0.8) 12/31/21 11:52 Baso # (Auto) 0.1 10^3/uL (0.0-0.1) 12/31/21 11:52 Nucleated RBC % (auto) 0 % 12/31/21 11:52 Nucleated RBCs # 0.0 /100WBC 12/31/21 11:52 PT 13.70 SECONDS (12.1-14.9) 12/31/21 11:52 INR 1.02 (0.8-1.2) 12/31/21 11:52 APTT 23.1 SECONDS (23.9-36.7) L 12/31/21 11:52 Sodium Cancelled 12/31/21 11:52 Potassium Cancelled 12/31/21 11:52 Chloride Cancelled 12/31/21 11:52 Carbon Dioxide Cancelled 12/31/21 11:52 Anion Gap Cancelled 12/31/21 11:52 BUN Cancelled 12/31/21 11:52 Creatinine Cancelled 12/31/21 11:52 GFR Calculation Cancelled 12/31/21 11:52 Glucose Cancelled 12/31/21 11:52 Calculated Osmolality Cancelled 12/31/21 11:52 Calcium Cancelled 12/31/21 11:52 Discharge Plan Discharge Patient Disposition: Transfer to ED Clinical Impression: Cerebral parenchymal hemorrhage, Hematoma Condition: Stable Prescriptions: No Action nitroglycerin [Nitrostat] 0.4 mg tablet, sublingual 0.4 mg SUBLINGUAL Q5M PRN0RF Rx Instructions: do not exceed 3 doses per episode clopidogrel 75 mg tablet See Rx Instructions .ROUTE .COMPLEX Qty: 90 3RF Dose Instruction: Take 1 tablet by mouth once daily Rx Instructions: Take 1 tablet by mouth once daily metoprolol tartrate 25 mg tablet 12.5 mg PO BID Qty: 30 0RF valsartan 160 mg tablet 160 mg PO BID Qty: 60 0RF atorvastatin 40 mg tablet 40 mg PO DAILY 0RF Rx Instructions: pt brought in his medications, but is unsure what he took today. daugher is with him and she also doesn't know what he took today. metformin 1,000 mg tablet 1,000 mg PO BID 0RF Rx Instructions: pt brought in his medications, but is unsure what he took today. daugher is with him and she also doesn't know what he took today. albuterol sulfate 90 mcg/actuation Hfa Aerosol Inhaler 2 puff INHALATION 6XD PRN (Reason: Shortness Of Breath) 0RF Rx Instructions: pt brought in his medications, but is unsure what he took today. daugher is with him and she also doesn't know what he took today. Referrals: Jonny Felix MD [Primary Care Provider] - Coding Level of Care Code ED Catering And Events Manager for Chg Fwd Documented by User: Quirino Ag MD 01/06/22 20:22 HPI - Fall General: Chief Complaint: Fall Stated Complaint: HEAD LAC, FALL Time Seen by Provider: 12/31/21 11:02 History of Present Illness: Please see Dr. Ag's note PFSH ED PFSH: Medical History Asthma CAD (coronary atherosclerotic disease) Hyperlipidemia Hypertension Myocardial infarction Obstructive sleep apnea Family History Sister Cancer Pancreatic CA Father , Age 70 MD Myocardial infarction Social History Smoking and tobacco status: never smoked Course Vital Signs: Vital signs: Vital Signs Temperature 97.9 F 12/31/21 12:05 Pulse Rate 96 12/31/21 12:10 Respiratory Rate 16 12/31/21 12:10 Blood Pressure 121/82 12/31/21 12:10 Pulse Oximetry 96 12/31/21 12:10 MDM - Fall Medical Decision Making Care transferred to Dr. Ag. Lab Data : 12/31/21 11:52 12/31/21 11:52 Radiology Impressions Cervical Spine CT 12/31/21 11:02 IMPRESSION: Arthritis and listhesis. No acute fracture. Head CT 12/31/21 11:02 IMPRESSION: 1. Intraparenchymal hemorrhage right parietal lobe. 2. Extensive right-sided scalp injury. ADDENDUM: 12/31/21 1129 THIS REPORT CONTAINS FINDINGS THAT MAY BE CRITICAL TO PATIENT CARE. The findings were verbally communicated by me to Dr Ag at 11:27 AM DECORATOR MANNEQUIN on 12/31/2021. The findings were acknowledged and understood. Laboratory Results WBC 17.2 10^3/uL (4.0-10.0) H 12/31/21 11:52 RBC 3.78 10^6/uL (4.1-5.3) L 12/31/21 11:52 Hgb 11.5 g/dL (11.7-16.6) L 12/31/21 11:52 Hct 35.5 % (42.0-52.0) L 12/31/21 11:52 MCV 93.9 fl (80-94) 12/31/21 11:52 MCH 30.4 pg (28.0-34.0) 12/31/21 11:52 MCHC 32.4 g/dL (30.0-36.0) 12/31/21 11:52 RDW 12.2 % (12.1-15.1) 12/31/21 11:52 Plt Count 223 10^3/cmm (130-400) 12/31/21 11:52 MPV 11.8 fL (7.4-10.4) H 12/31/21 11:52 Neut % (Auto) 91.2 % 12/31/21 11:52 Lymph % (Auto) 4.2 % 12/31/21 11:52 [place] % (Auto) 3.3 % 12/31/21 11:52 Eos % (Auto) 0.1 % 12/31/21 11:52 Baso % (Auto) 0.4 % 12/31/21 11:52 Neut # (Auto) 15.72 10^3/uL (1.8-7.7) H 12/31/21 11:52 Lymph # (Auto) 0.7 10^3/uL (0.8-4.8) L 12/31/21 11:52 [place] # (Auto) 0.6 10^3/uL (0.2-0.9) 12/31/21 11:52 Eos # (Auto) 0.0 10^3/uL (0.0-0.8) 12/31/21 11:52 Baso # (Auto) 0.1 10^3/uL (0.0-0.1) 12/31/21 11:52 Nucleated RBC % (auto) 0 % 12/31/21 11:52 Nucleated RBCs # 0.0 /100WBC 12/31/21 11:52 PT 13.70 SECONDS (12.1-14.9) 12/31/21 11:52 INR 1.02 (0.8-1.2) 12/31/21 11:52 APTT 23.1 SECONDS (23.9-36.7) L 12/31/21 11:52 Sodium Cancelled 12/31/21 11:52 Potassium Cancelled 12/31/21 11:52 Chloride Cancelled 12/31/21 11:52 Carbon Dioxide Cancelled 12/31/21 11:52 Anion Gap Cancelled 12/31/21 11:52 BUN Cancelled 12/31/21 11:52 Creatinine Cancelled 12/31/21 11:52 GFR Calculation Cancelled 12/31/21 11:52 Glucose Cancelled 12/31/21 11:52 Calculated Osmolality Cancelled 12/31/21 11:52 Calcium Cancelled 12/31/21 11:52 Critical Care Time Critical Care Time: Critical Care Time: Yes Total Critical Care Time: 35 Attestation: The high probability of a clinically significant, sudden or life threatening deterioration of the patient's Neurological system(s) required my full and direct attention, intervention and personal management. The critical care time is as shown. This time is in addition to time spent performing any reported procedures but includes the following: [x] Data and vital sign review and interpretation [x] Patient assessment, examination and intervention [x] Documentation [x] Medication orders and management Discharge Plan Discharge Patient Disposition: Transfer to ED Clinical Impression: Cerebral parenchymal hemorrhage, Hematoma Condition: Stable Prescriptions: No Action nitroglycerin [Nitrostat] 0.4 mg tablet, sublingual 0.4 mg SUBLINGUAL Q5M PRN0RF Rx Instructions: do not exceed 3 doses per episode clopidogrel 75 mg tablet See Rx Instructions .ROUTE .COMPLEX Qty: 90 3RF Dose Instruction: Take 1 tablet by mouth once daily Rx Instructions: Take 1 tablet by mouth once daily metoprolol tartrate 25 mg tablet 12.5 mg PO BID Qty: 30 0RF valsartan 160 mg tablet 160 mg PO BID Qty: 60 0RF atorvastatin 40 mg tablet 40 mg PO DAILY 0RF Rx Instructions: pt brought in his medications, but is unsure what he took today. daugher is with him and she also doesn't know what he took today. metformin 1,000 mg tablet 1,000 mg PO BID 0RF Rx Instructions: pt brought in his medications, but is unsure what he took today. daugher is with him and she also doesn't know what he took today. albuterol sulfate 90 mcg/actuation Hfa Aerosol Inhaler 2 puff INHALATION 6XD PRN (Reason: Shortness Of Breath) 0RF Rx Instructions: pt brought in his medications, but is unsure what he took today. daugher is with him and she also doesn't know what he took today. Referrals: Jonny Felix MD [Primary Care Provider] - Coding Level of Care Code ED Catering And Events Manager for Ele [place]
--- NOTE | 2021-12-31 11:26 | W.ED.GENADLT ---
HPI - General Adult General: Stated complaint: HEAD LAC, FALL Time Seen by Provider: 12/31/21 11:02 Source: patient and EMS Mode of arrival: EMS Limitations: no limitations History of Present Illness: Patient is a 81-year-old male with history of Plavix for CAD presenting to the emergency room status post mechanical fall. Patient tells me he was walking about an hour ago outside when he tripped and fell backwards. Patient denies losing consciousness. Patient reports significant bleeding in the back of head. EMS was called and patient was brought to the emergency room. In route, patient had multiple pads and gauze to stop the bleeding the back of the head. He denies any other injuries, denies any associate chest pain no shortness palpitation or lightheadedness. Onset:1 hr ago Duration:1 hr Location:home Severity:severe Associated symptoms: Deny chest pain, dyspnea, nausea, palpitations or vomiting Review of Systems Const: Denies: fever(s) or chills Eyes: Denies: change in vision ENMT: Denies: mouth pain Card: Denies: chest pain or palpitations Resp: Denies: dyspnea or non-productive cough GI: Denies: abdominal pain, nausea, vomiting or diarrhea : Denies: dysuria Musc: Denies: extremity pain Skin/Breast: Reports: new lesions (+scalp hematoma large/ with dried blood over scalp and back of neck) Neuro: Denies: weakness in extremities Psych: Reports: other (Normal mood) Dwight/Lymph: Denies: easy bruising PFSH ED PFSH: Medical History Asthma CAD (coronary atherosclerotic disease) Hyperlipidemia Hypertension Myocardial infarction Obstructive sleep apnea Family History Sister Cancer Pancreatic CA Father , Age 70 MD Myocardial infarction Social History Smoking and tobacco status: never smoked Physical Exam Const: COMMON NORMALS: alert HENMT: MOUTH: moist mucous membranes not abnormal OTHER: + Large posterior/occipital scalp hematoma with dried blood Eye: COMMON NORMALS: EOMs intact bilaterally and conjunctivae normal CONJUNCTIVA: Yes conjunctivae normal Neck/C-Spine: COMMON NORMALS: full ROM and supple Resp: COMMON NORMALS: normal respiratory effort and clear to auscultation bilaterally AUSCULTATION: clear to auscultation bilaterally Cardio: COMMON NORMALS: regular rate RATE: regular rate GI: COMMON NORMALS: Soft to palpation and non-tender PALPATION: Yes Soft to palpation Extremity: COMMON NORMALS: full ROM Neuro: SENSORIUM/ORIENTATION: Yes alert MOTOR EXAM: No Abnormal motor strength present and Other motor observations present (no focal motor deficits) Psych: COMMON NORMALS: speech normal SPEECH: Yes normal speech MOOD & AFFECT: Yes euthymic mood Skin: NARRATIVE SKIN EXAM: +posterior scalp large hematoma, no vsible laceration MDM - General Adult Medical Decision Making 81-year-old male w/ hx of CAD on plavix presenting to emergency room after episode of fall with large scalp hematoma with dried blood. On physical exam, patient is GCS 15, following commands, neurologically intact. Blood pressure 132/60. Patient does not remember his last Tdap. Status post Tdap. No visible laceration but large hematoma observed. CT head showed right-sided parietal parenchymal bleed without any shift. Patient received desmopressin for Plavix. Blood pressure appears to be well controlled. S/p 50mcg of fentanyl for pain Case was discussed with Dr. Javier Barr who agreed with the transfer to [facility] for transfer as a trauma for management of brain bleed Disposition: Transfer to outside hospital Lab Data Radiology Impressions Cervical Spine CT 12/31/21 11:02 IMPRESSION: Arthritis and listhesis. No acute fracture. Head CT 12/31/21 11:02 IMPRESSION: 1. Intraparenchymal hemorrhage right parietal lobe. 2. Extensive right-sided scalp injury. ADDENDUM: 12/31/21 1129 THIS REPORT CONTAINS FINDINGS THAT MAY BE CRITICAL TO PATIENT CARE. The findings were verbally communicated by me to Dr Ag at 11:27 AM DRYING EQUIPMENT OPERATOR on 12/31/2021. The findings were acknowledged and understood. Imaging Data Other Imaging: Radiologist's impression: [address] [place] [address] CT Scan Report Signed with Addenda Patient: Kevin Darling Unit #: [id number] : 1940 Age/Sex: 81 / M ADM Date: 12/31/21 Loc: ER Room/Bed: Attending Dr: Ordering Provider/Ordering MD: Margaret Meraz Date of Service: 12/31/21 Procedure(s): CT head wo con* [id number] Accession Number(s): [id number] Report Number: [id number]/CT head wo con* [id number] THIS REPORT CONTAINS FINDINGS THAT MAY BE CRITICAL TO PATIENT CARE. The findings were verbally communicated by me to Dr Ag at 11:27 AM DRYING EQUIPMENT OPERATOR on 12/31/2021. The findings were acknowledged and understood. ? Addendum Dictated By: ?Marciano Sanchez MD Addendum Signed By: ?Marciano Sanchez MD Signed Date/Time: 12/31/21 1129 Addendum Cosigned By: ? PROCEDURE INFORMATION: Exam: CT Head Without Contrast Exam date and time: 12/31/2021 11:10 AM Age: 81 years old Clinical indication: Injury or trauma; Blunt trauma (contusions or hematomas); Injury details: Ground level fall on gravel road. Hit back of head n gravel. Lac to RT side of head. ; Additional info: Trauma/fall TECHNIQUE: Imaging protocol: Computed tomography of the head without contrast. Radiation optimization: All CT scans at this facility use at least one of these dose optimization techniques: automated exposure control; mA and/or kV adjustment per patient size (includes targeted exams where dose is matched to clinical indication); or iterative reconstruction. COMPARISON: MR head wo con* [id number] 04/26/2020 3:44 PM RADIATION DOSE METRICS: Total DLP (mGy-cm): 734.9 FINDINGS: Brain: Moderate central and cortical atrophy. There is hemorrhage noted measuring 14 x 14 mm involving the medial right parietal lobe just anterior and slightly above the fissure. There is no subdural hemorrhage. Cerebral ventricles: No ventriculomegaly. Paranasal sinuses: Mucous membrane thickening in the maxillary sinuses. Possible maxillary bilateral antrectomies. Extensive ethmoidal air cell disease and mild right frontal sinus disease. Subtotal opacification of the left sphenoid sinus and mild disease in the right sphenoid sinus. Mastoid air cells: Visualized mastoid air cells are well aerated. Bones/joints: See Paranasal sinuses finding. Soft tissues: There is scalp and skin injury involving the right posterior parietal lobe with hematoma along the posterior right scalp. CT/CT head wo con* [id number] IMPRESSION: 1. Intraparenchymal hemorrhage right parietal lobe. 2. Extensive right-sided scalp injury. ? Dictated By: Marciano Sanchez MD Signed By: Marciano Sanchez MD Signed Date/Time: 12/31/21 1127 DD/ [address] [address] [address] Scan Report Signed Patient: Kevin Darling Unit #: [id number] : 1940 Age/Sex: 81 / M ADM Date: 12/31/21 Loc: ER Room/Bed: Attending Dr: Ordering Provider/Ordering MD: Margaret Meraz Date of Service: 12/31/21 Procedure(s): CT cervical spin wo con* [id number] Accession Number(s): [id number] Report Number: [id number] PROCEDURE INFORMATION: Exam: CT Cervical Spine Without Contrast Exam date and time: 12/31/2021 11:13 AM Age: 81 years old Clinical indication: Injury or trauma; Blunt trauma; Injury details: Ground level fall hitting back of head on gravel. C-collar in place; Additional info: Trauma, fall TECHNIQUE: Imaging protocol: Computed tomography images of the cervical spine without contrast. Radiation optimization: All CT scans at this facility use at least one of these dose optimization techniques: automated exposure control; mA and/or kV adjustment per patient size (includes targeted exams where dose is matched to clinical indication); or iterative reconstruction. COMPARISON: CT Cervical Spine wo* [id number] 01/23/2016 9:32 AM RADIATION DOSE METRICS: Total DLP (mGy-cm): 725.34 FINDINGS: Bones/joints: No acute fracture.? There is 3 mm listhesis C3 anterior to C4. ?There is 2 mm listhesis see 5 anterior to C6. Discs/Spinal canal/Neural foramina: C2/3:? No acute abnormality. C3/4:? No disc protrusion or extrusion.? No spinal stenosis.? The right foramina is normal with severe left foraminal narrowing due to spurring. C4/5:? No disc protrusion or extrusion.? Moderate foraminal narrowing due to arthritic changes.? No spinal stenosis. C5/6:? Mild degenerative disc disease.? No disc protrusion or extrusion.? Moderate foraminal narrowing due to spurring on the right and moderate to severe foraminal narrowing due to spurring on the left.? No stenosis. C6/7 and C7/T1:? No acute abnormality. Lungs:? Mild suspected left apical pleuroparenchymal scarring. Soft tissues: Unremarkable. CT/CT cervical spin wo con* [id number] IMPRESSION: Arthritis and listhesis.? No acute fracture. ? Dictated By: Marciano Sanchez MD Signed By: Marciano Sanchez MD Signed Date/Time: 12/31/21 1134 DD/ 1113 Discharge Plan Discharge Patient Disposition: Transfer to ED Clinical Impression: Cerebral parenchymal hemorrhage, Hematoma Condition: Stable Prescriptions: No Action nitroglycerin [Nitrostat] 0.4 mg tablet, sublingual 0.4 mg SUBLINGUAL Q5M PRN0RF Rx Instructions: do not exceed 3 doses per episode clopidogrel 75 mg tablet See Rx Instructions .ROUTE .COMPLEX Qty: 90 3RF Dose Instruction: Take 1 tablet by mouth once daily Rx Instructions: Take 1 tablet by mouth once daily metoprolol tartrate 25 mg tablet 12.5 mg PO BID Qty: 30 0RF valsartan 160 mg tablet 160 mg PO BID Qty: 60 0RF atorvastatin 40 mg tablet 40 mg PO DAILY 0RF Rx Instructions: pt brought in his medications, but is unsure what he took today. daugher is with him and she also doesn't know what he took today. metformin 1,000 mg tablet 1,000 mg PO BID 0RF Rx Instructions: pt brought in his medications, but is unsure what he took today. daugher is with him and she also doesn't know what he took today. albuterol sulfate 90 mcg/actuation Hfa Aerosol Inhaler 2 puff INHALATION 6XD PRN (Reason: Shortness Of Breath) 0RF Rx Instructions: pt brought in his medications, but is unsure what he took today. daugher is with him and she also doesn't know what he took today. Referrals: Jonny Felix MD [Primary Care Provider] - Coding Level of Care Code ED Annealing Furnace Operator for Chg Fwd Exam Comprehensive
[2021-12-31 12:05] VITALS: BP 121/82; PULSE 96; RESP 16; TEMP 36.6; O2SAT 96; BMI 35.2
[2021-12-31 12:10] VITALS: BP 121/82; PULSE 96; RESP 16; O2SAT 96
[2021-12-31 12:12] LABS: Basophils # 0.1 10^3/uL (0.0-0.1); Basophils % 0.4 %; Eosinophils % 0.1 %; Hematocrit 35.5 % (42.0-52.0); Hemoglobin 11.5 g/dL (11.7-16.6); Lymphocytes # 0.7 10^3/uL (0.8-4.8); Lymphocytes % 4.2 %; Mean Corpuscular HGB Conc 32.4 g/dL (30.0-36.0); Mean Corpuscular Hemoglobin 30.4 pg (28.0-34.0); Mean Corpuscular Volume 93.9 fl (80-94); Mean Platelet Volume 11.8 fL (7.4-10.4); Monocytes # 0.6 10^3/uL (0.2-0.9); Monocytes % 3.3 %; Neutrophils # 15.72 10^3/uL (1.8-7.7); Neutrophils % 91.2 %; Nucleated Red Blood Cells % 0 %; Platelet Count 223 10^3/cmm (130-400); Red Blood Count 3.78 10^6/uL (4.1-5.3); Red Cell Distribution Width 12.2 % (12.1-15.1); White Blood Count 17.2 10^3/uL (4.0-10.0)
[2021-12-31] MEDS: tetanus-dipt-pertussis 0.5 mL SDV IM (12:14)
[2021-12-31 12:36] LABS: INR 1.02 (0.8-1.2); Partial Thromboplastin Time 23.1 SECONDS (23.9-36.7)
== END 2021-12-31 13:14 ==
PROVIDERS: Emergency Provider Emergency Medicine; PCP Family Medicine
DX: S06.340A Traumatic hemorrhage of right cerebrum without loss of consciousness, initial encounter (principal); W18.39XA Other fall on same level, initial encounter; Y92.410 Unspecified street and highway as the place of occurrence of the external cause; Z23 Encounter for immunization; Z79.02 Long term (current) use of antithrombotics/antiplatelets; I10 Essential (primary) hypertension; I25.10 Atherosclerotic heart disease of native coronary artery without angina pectoris; I25.2 Old myocardial infarction
CPT/HCPCS: 70450; 72125; 85025; 85610; 85730; 90471; 90715; 96365; 99285; J2597

== ENCOUNTER → 2022-05-13 11:00 | Outpatient (BNVA) | payer MEDICARE, OTHER, SELFPAY | PROVIDERS: PCP Family Medicine; Visit Provider Family Medicine | DX: E11.9 Type 2 diabetes mellitus without complications (principal); I10 Essential (primary) hypertension; E78.49 Other hyperlipidemia; I25.10 Atherosclerotic heart disease of native coronary artery without angina pectoris; I21.9 Acute myocardial infarction, unspecified; E78.5 Hyperlipidemia, unspecified | CPT/HCPCS: 80053; 80061; 83036 ==

== ENCOUNTER → 2022-10-29 12:41 | Outpatient (BNVA) | payer MEDICARE, OTHER, SELFPAY | PROVIDERS: PCP Family Medicine; Visit Provider Family Medicine | DX: E11.9 Type 2 diabetes mellitus without complications (principal); I10 Essential (primary) hypertension; E78.49 Other hyperlipidemia; I25.10 Atherosclerotic heart disease of native coronary artery without angina pectoris | CPT/HCPCS: 80053; 80061; 83036; 85025 ==

== ENCOUNTER → 2023-05-04 14:18 | Outpatient (BNVA) | payer MEDICARE, OTHER, SELFPAY | PROVIDERS: PCP Family Medicine; Visit Provider Family Medicine | DX: E11.9 Type 2 diabetes mellitus without complications (principal); I10 Essential (primary) hypertension; E78.5 Hyperlipidemia, unspecified; I25.10 Atherosclerotic heart disease of native coronary artery without angina pectoris; E78.49 Other hyperlipidemia | CPT/HCPCS: 80053; 80061; 83036 ==

== ENCOUNTER → 2024-01-06 10:24 | Outpatient (BNVA) | payer MEDICARE, OTHER, SELFPAY | PROVIDERS: PCP Family Medicine; Visit Provider Family Medicine | DX: E78.49 Other hyperlipidemia (principal); I10 Essential (primary) hypertension; I25.10 Atherosclerotic heart disease of native coronary artery without angina pectoris; E11.9 Type 2 diabetes mellitus without complications; J45.909 Unspecified asthma, uncomplicated | CPT/HCPCS: 80053; 80061; 83036; 85025 ==

== ENCOUNTER → 2024-06-26 14:20 | Outpatient (BNVA) | payer MEDICARE, OTHER, SELFPAY | PROVIDERS: PCP Family Medicine; Visit Provider Family Medicine | DX: I10 Essential (primary) hypertension (principal); I25.10 Atherosclerotic heart disease of native coronary artery without angina pectoris; E78.49 Other hyperlipidemia; E11.9 Type 2 diabetes mellitus without complications | CPT/HCPCS: 80053; 80061; 83036; 85025 ==

== ENCOUNTER → 2025-03-19 13:04 | Outpatient (BNVA) | payer MEDICARE, OTHER, SELFPAY | PROVIDERS: PCP Family Medicine; Visit Provider Family Medicine | DX: I10 Essential (primary) hypertension (principal); I25.10 Atherosclerotic heart disease of native coronary artery without angina pectoris; E78.49 Other hyperlipidemia; E11.9 Type 2 diabetes mellitus without complications | CPT/HCPCS: 80053; 80061; 83036; 84443; 85025 ==